=== PATIENT | male | born 1975 | race Two or more races ===

== ENCOUNTER 2022-11-16 10:54 | Emergency (ER) | payer OTHER ==
[~2022-11-16] VITALS: Ht 170.2 cm; Wt 86.6 kg
== END 2022-11-16 17:23 | disposition home or self-care (01) ==
LOC: ER 10:54
DX: N20.1 Calculus of ureter (principal); R10.9 Unspecified abdominal pain; I10 Essential (primary) hypertension; E11.9 Type 2 diabetes mellitus without complications